=== PATIENT | female | born 1975 | race Caucasian/White ===

== ENCOUNTER 2017-08-22 19:57 | Emergency (ER) | payer BC ==
[2017-08-22 20:58] LABS: ABS Basophils 0.1 10^3/ul (0-0.2); ABS Eosinophils 0.2 10^3/ul (0-0.6); ABS Lymphocytes 2.7 10^3/ul (1.0-4.8); ABS Monocytes 0.9 10^3/ul (0-0.8); ABS Neutrophils 10.8 10^3/ul (1.5-7.7); ABS Nucleated RBC 0 10^3/ul; Eosinophil % 1.3 % (0-6); Hematocrit 41 % (35-47); Lymphocyte % 18.2 % (25-47); Mean Corpuscular HGB Conc 34 g/dl (31-36); Mean Corpuscular Hemoglobin 28 pg (27-31); Mean Corpuscular Volume 81 fL (80-97); Mean Platelet Volume 8.7 um3 (7.4-10.4); Nucleated Red Blood Cells % 0; Platelet Count 319 10^3/ul (150-450); Red Blood Count 5.07 10^6/ul (4.00-5.40); Red Cell Distribution Width 14 % (10.5-15); White Blood Count 14.6 10^3/ul (3.5-10.8)
[2017-08-22 23:30] LABS: Urine Appearance Clear; Urine Blood Negative (Negative); Urine Color Yellow; Urine Ketones Negative (Negative); Urine Protein Negative (Negative); Urine Specific Gravity 1.005 (1.010-1.030); Urine Urobilinogen Negative (Negative)
--- NOTE | 2017-08-23 00:08 | ED ---
Abdominal Pain/Female - HPI Summary HPI Summary: This is lillian Vincentin documenting for attending Dr. Rose Ly MD. A 41 y/o female presents to ED c/o LUQ abdominal pain. As per triage, "Patient reporting increased left-sided abdominal pain that ""shoots around my back""". Currently, the patient has no nausea or vomit ("waves of nausea"), but the abdominal pain is present. According to the patient, she has been having abdominal pain for the past two days (since 08/21/2017) with it reaching 8/10 in severity. She stated that she vomited a couple times over the last couple days. The vomit was not dark or bloody, however there was bile and undigested food. Other than the abdominal pain she comes in to the ED today with, she is otherwise healthy. Pt denies any fever (that she knows of). The patient noted that yesterday her stool has been solid, but there was also diarrhea with no blood. Additionally, it was noted that she has had no appetite lately. To alleviate symptoms, pt took 800 mg of Ibuprofen around 1730, however it did no good. PMHx of cholecystectomy and hernia surgery where lots of scar tissue were removed from gallbladder (pt has scars on abdomen). Additional PMHx of tubal ligation and Endoscopy. Her endoscopy was before her cholecystectomy done at [facility]. The upper and lower scoped endoscopy revealed that there was nothing to be concerned of as there was no abnormalities, however, she noted that there was acid reflux wearing but it will heal over time. Furthermore, she just had her menstrual period that started over a week ago which ended approximately on Sunday (08/19/2017), however she stated that previous to that she never had one. Her doctor stated it is signs of early menopause. No known allergies. Current medications are Zyrtec (allergies), Flonase Nasal [place] and Omeprazole. She took Omeprazole this morning. PCP is Dr. Salty Barksdale. Her who has atrial flutter hiatal hernia will be her ride home and he is on his way home to drop of children. - History of Current Complaint Chief Complaint: EDAbdPain Stated Complaint: ABD PAIN Time Seen by Provider: 08/22/17 23:46 Hx Obtained From: Patient Hx Last Menstrual Period: 1 MONTH AGO Onset/Duration: Sudden Onset Timing: Constant Severity Initially: Severe Severity Currently: Severe Pain Intensity: 8 Pain Scale Used: 0-10 Numeric Location: Discrete At: LUQ Radiates: Yes Radiates to: Back Aggravating Factor(s): Nothing Alleviating Factor(s): Nothing Associated Signs and Symptoms: Positive: Decreased Appetite, Nausea, Vomiting, Diarrhea. Negative: Fever Allergies/Adverse Reactions: Allergies Allergy/AdvReac Type Severity Reaction Status Date / Time No Known Allergies Allergy Verified 02/08/15 15:54 PMH/Surg Hx/FS Hx/Imm Hx Endocrine/Hematology History: Denies: Hx Diabetes - a Cardiovascular History: Denies: Hx Hypertension - Surgical History Surgery Procedure, Year, and Place: TUBAL LIGATION,. CHOLECYSTECTOMY, HERNIA REPAIR 11/2014 Infectious Disease History: No Infectious Disease History: Denies: Traveled Outside the in Last 30 Days - Family History Known Family History: Negative: Hypertension - Social History Alcohol Use: Occasionally Substance Use Type: Reports: None Smoking Status (MU): Never Smoked Tobacco Review of Systems Negative: Fever Positive: Abdominal Pain, Vomiting, Diarrhea, Nausea, Other - POSITIVE: Appetite changes All Other Systems Reviewed And Are Negative: Yes Physical Exam - Summary Physical Exam Summary: Appearance: Well-appearing, moderate pain distress, well-nourished Skin:Warm, color reflects adequate perfusion, dry Head:Normal Head/Face inspection, atraumatic Eyes: Conjunctiva clear ENT:Normal inspection Neck:Supple, no nodes, no JVD Respiratory: Lungs clear, normal breath sounds, no respiratory distress Cardio: RRR, No murmur, pulses normal, brisk capillary refill Abdomen: Soft, tender in the LUQ Bowel sounds: Present Musculoskeletal: Strength Intact/ROM intact, no calf tenderness, no edema. Psychological: Normal Neuro: Alert, muscle tone normal, no focal deficit Triage Information Reviewed: Yes Vital Signs On Initial Exam: Initial Vitals Temp Pulse Resp BP Pulse Ox 99.2 F 129 20 161/99 98 08/22/17 20:08 08/22/17 20:08 08/22/17 20:08 08/22/17 20:08 08/22/17 20:08 Vital Signs Reviewed: Yes Diagnostics - Vital Signs Vital Signs Temp Pulse Resp BP Pulse Ox 08/22/17 23:36 95 155/76 96 08/22/17 22:11 98.2 F 87 18 111/67 08/22/17 20:08 99.2 F 129 20 161/99 98 - Laboratory Lab Results: Lab Results 08/22/17 08/22/17 08/22/17 Range/Units 20:43 20:43 22:56 WBC 14.6 H (3.5-10.8) 10^3/ul RBC 5.07 (4.00-5.40) 10^6/ul Hgb 14.0 (12.0-16.0) g/dl Hct 41 (35-47) % MCV 81 (80-97) fL MCH 28 (27-31) pg MCHC 34 (31-36) g/dl RDW 14 (10.5-15) % Plt Count 319 (150-450) 10^3/ul MPV 8.7 (7.4-10.4) um3 Neut % (Auto) 73.9 (38-83) % Lymph % (Auto) 18.2 L (25-47) % Hardy % (Auto) 5.9 (0-7) % Eos % (Auto) 1.3 (0-6) % Baso % (Auto) 0.7 (0-2) % Absolute Neuts (auto) 10.8 H (1.5-7.7) 10^3/ul Absolute Lymphs (auto) 2.7 (1.0-4.8) 10^3/ul Absolute Monos (auto) 0.9 H (0-0.8) 10^3/ul Absolute Eos (auto) 0.2 (0-0.6) 10^3/ul Absolute Basos (auto) 0.1 (0-0.2) 10^3/ul Absolute Nucleated RBC 0 10^3/ul Nucleated RBC % 0 Sodium 137 (135-145) mmol/L Potassium 3.9 (3.5-5.0) mmol/L Chloride 101 (101-111) mmol/L Carbon Dioxide 23 (22-32) mmol/L Anion Gap 13 H (2-11) mmol/L BUN 7 (6-24) mg/dL Creatinine 0.83 (0.51-0.95) mg/dL Est GFR ( Amer) 90.8 (>60) Est GFR (Non-Af Amer) 75.0 (>60) BUN/Creatinine Ratio 8.4 (8-20) Glucose 83 (70-100) mg/dL Calcium 9.6 (8.6-10.3) mg/dL Total Bilirubin 0.50 (0.2-1.0) mg/dL AST 17 (13-39) U/L ALT 20 (7-52) U/L Alkaline Phosphatase 121 H (34-104) U/L C-Reactive Protein 11.06 H (<8.01) mg/L Total Protein 8.1 (6.4-8.9) g/dL Albumin 4.4 (3.2-5.2) g/dL Globulin 3.7 (2-4) g/dL Albumin/Globulin Ratio 1.2 (1-3) Lipase 18 (11.0-82.0) U/L Urine Color Yellow Urine Appearance Clear Urine pH 6.0 (5-9) Ur Specific [place] 1.005 L (1.010-1.030) Urine Protein Negative (Negative) Urine Ketones Negative (Negative) Urine Blood Negative (Negative) Urine Nitrate Negative (Negative) Urine Bilirubin Negative (Negative) Urine Urobilinogen Negative (Negative) Ur Leukocyte Esterase Negative (Negative) Urine Glucose Negative (Negative) Result Diagrams: 08/22/17 20:43 08/22/17 20:43 Lab Statement: Any lab studies that have been ordered have been reviewed, and results considered in the medical decision making process. Re-Evaluation - Re-Evaluation First Eval Re-Evaluation Time: 04:35 Comment: Pt c/o level 7 RLQ pain. Second Eval Re-Evaluation Time: 05:37 Comment: Patient is still in pain, but would like to go home. Abdominal Pain Fem Course/Dx - Course Course Of Treatment: A 41 y/o female presents to ED c/o LUQ abdominal pain. No laboratory scans were done. In the ED course, the patient recieved Maalox, Xylocaine, Morphine, Protonix and IV fluids. During reevaluation, the patient was still in pain, but would still like to go home. Patient will be discharged with a diagnosis of LUQ abdominal pain. Pt is to follow up with PCP in 2-3 days. Pt is agreeable with this plan. - Diagnoses Provider Diagnoses: LUQ abdominal pain Discharge - Sign-Out/Discharge Documenting (check all that apply): Patient Departure - DISCHARGE - Discharge Plan Condition: Stable Disposition: HOME Patient Education Materials: Acute Abdominal Pain (ED) Referrals: Salty Barksdale MD [Primary Care Provider] - 2 Days (FOLLOW UP WITH PCP IN 2-3 DAYS.) Additional Instructions: Call your GI doctor from [place] today. We gave you a copy of your labs from the ER today. You were given Morphine 6mg IV, pantoprazole 80mg IV, and a "GI cocktail" with some relife. Return to the ER if any new or worsening symptoms.
[2017-08-23] MEDS ORDERED: NS 0.9% 1000 ML* 2,000 ML IV SCH (01:30)
[2017-08-23] MEDS ORDERED: Morphine VIAL* 4 MG/ML VIAL (1 ml vial) IV ONE ×2 (01:31→01:34)
[2017-08-23] MEDS ORDERED: Pantoprazole IV* 40 MG IV ONE (01:31)
[2017-08-23] MEDS ORDERED: Lidocaine 2% VISCOUS* 15 ML UDC PO ONE (04:36)
[2017-08-23] MEDS ORDERED: Lidocaine 2% VISCOUS* 15 ML UDC ONE (04:37)
[2017-08-23] MEDS ORDERED: Al Hydrox/Mg Hydrox/Simet LIQ* 30 ML UDC PO ONE (04:37)
[2017-08-23] MEDS ORDERED: Al Hydrox/Mg Hydrox/Simet LIQ* 30 ML UDC ONE (04:37)
[2017-08-23 06:00] VITALS: BP 103/70
== END 2017-08-23 06:02 | disposition home or self-care (01) ==
LOC: ED 19:57
DX: R10.12 Left upper quadrant pain (principal); R10.31 Right lower quadrant pain; R11.2 Nausea with vomiting, unspecified; R19.7 Diarrhea, unspecified; Z90.49 Acquired absence of other specified parts of digestive tract
CPT/HCPCS: 36415; 80053; 81003; 82272; 83690; 85025; 86140; 96374; 96375; 99284; A9270-GY; J2270

== ENCOUNTER 2018-02-25 11:29 | Emergency (ER) | payer BC ==
[2018-02-25 11:37] VITALS: BP 140/82
--- NOTE | 2018-02-25 11:55 | UC ---
Abdominal Pain Female HPI - HPI Summary HPI Summary: This patient is a 42-year-old female who presents to the urgent care with a chief complaint of lower abdominal pain. She reports that the pain started on Sunday for which she has been taking dicyclomine since the patient has past medical history of irritable bowel syndrome. Initially the patient had constipation but now the patient is having diarrhea. She reports that is watery diarrhea. Denies any blood or mucus. She reports that the pain is 10 out of 10. Positive nausea vomiting and unable to keep anything by mouth. - History of Current Complaint Chief Complaint: UCAbdominalPain Stated Complaint: ABDOMINAL PAIN Time Seen by Provider: 02/25/18 11:42 Hx Last Menstrual Period: unknown Pain Intensity: 8 Allergies/Adverse Reactions: Allergies Allergy/AdvReac Type Severity Reaction Status Date / Time No Known Allergies Allergy Verified 02/25/18 11:30 PMH/Surg Hx/FS Hx/Imm Hx Previously Healthy: Yes GI/ History: Other - Irritable bowel syndrome - Surgical History Surgical History: Yes Surgery Procedure, Year, and Place: TUBAL LIGATION,. CHOLECYSTECTOMY, HERNIA REPAIR 11/2014 - Family History Known Family History: Negative: Hypertension - Social History Alcohol Use: Occasionally Substance Use Type: None Smoking Status (MU): Former Smoker Review of Systems All Other Systems Reviewed And Are Negative: Yes Constitutional: Positive: Negative Skin: Positive: Negative Eyes: Positive: Negative ENT: Positive: Negative Respiratory: Positive: Negative Cardiovascular: Positive: Negative Gastrointestinal: Positive: Abdominal Pain, Nausea Genitourinary: Positive: Negative Motor: Positive: Negative Neurovascular: Positive: Negative Musculoskeletal: Positive: Negative Neurological: Positive: Negative Psychological: Positive: Negative Is Patient Immunocompromised?: No Physical Exam - Summary Physical Exam Summary: VITAL SIGNS: Reviewed. GENERAL: Patient is an obese female who is lying comfortable in the stretcher. Patient is not in any acute respiratory distress. HEAD AND FACE: Normocephalic and atraumatic. EYES: PERRLA, EOMI x 2, No injected conjunctiva. EARS: Hearing grossly intact. Ear canals and tympanic membranes are WNL. MOUTH: Oropharynx within normal limits. NECK: Supple, trachea is midline, no adenopathy, no JVD. CHEST: Symmetric, no tenderness at palpation LUNGS: Clear to auscultation bilaterally. No wheezing or crackles. CVS: RRR, S1 and S2 present, no murmurs or gallops appreciated. ABDOMEN: Soft, obese, diffuse tenderness however increases and tenderness in the left lower quadrant. EXTREMITIES: FROM in all major joints, no edema, no cyanosis or clubbing. NEURO: Alert and oriented x 3. No acute neurological deficits. Speech is normal. SKIN: Dry and warm Vital Signs: Initial Vital Signs Temp 100.0 F 02/25/18 11:32 Pulse 111 02/25/18 11:32 Resp 20 02/25/18 11:32 BP 140/82 02/25/18 11:32 Pulse Ox 100 02/25/18 11:32 Abd Pain Female Course/Dx - Course Course Of Treatment: I believe that the patient would benefit of blood work, IV medications for pain, nausea vomiting, possibly an abdominopelvic CT a discussion with the ED attending therefore the patient was recommended to go to the emergency department for further workup and management. The patient agrees and understands. The patient declined ambulance transfer. She reports that her will take the patient to the emergency department. - Differential Dx/Diagnosis Differential Diagnosis: Constipation, Diverticulitis, Irritable Bowel Syndrome, Ovarian Cyst, Urinary Tract Infection Provider Diagnosis: Abdominal pain Discharge - Sign-Out/Discharge Documenting (check all that apply): Patient Departure All imaging exams completed and their final reports reviewed: No - Discharge Plan Condition: Good Disposition: HOME-RECOMMEND TO ED Patient Education Materials: Acute Abdominal Pain (ED) Referrals: Salty Barksdale MD [Primary Care Provider] - Additional Instructions: Patient will be discharged to the emergency room for further workup and management. Patient declined ambulance transfer. - Billing Disposition and Condition Condition: GOOD Disposition: Home-Recommend to ED
--- NOTE | 2018-02-25 16:40 | UC ---
Course/Dx - Diagnoses Provider Diagnoses: Abdominal pain Discharge - Sign-Out/Discharge Documenting (check all that apply): Post-Discharge Follow Up All imaging exams completed and their final reports reviewed: No Studies - Discharge Plan Condition: Good Disposition: HOME-RECOMMEND TO ED Patient Education Materials: Acute Abdominal Pain (ED) Referrals: Salty Barksdale MD [Primary Care Provider] - Additional Instructions: Patient will be discharged to the emergency room for further workup and management. Patient declined ambulance transfer. - Billing Disposition and Condition Condition: GOOD Disposition: Home-Recommend to ED
== END 2018-02-25 12:03 | disposition home health service (06) ==
LOC: UCEAST 11:29
DX: R10.30 Lower abdominal pain, unspecified (principal); R19.7 Diarrhea, unspecified; R11.2 Nausea with vomiting, unspecified; Z90.49 Acquired absence of other specified parts of digestive tract; Z87.891 Personal history of nicotine dependence
CPT/HCPCS: 99212; G0463

== ENCOUNTER 2018-02-25 12:18 | Inpatient (IN) | payer BC ==
[2018-02-25] MEDS ORDERED: NS 0.9% 1000 ML* 1,000 ML IV ONE (12:51)
[2018-02-25] MEDS ORDERED: Ondansetron INJ* 2 MG/ML VIAL IV ONE (12:51)
--- NOTE | 2018-02-25 12:52 | ED ---
Abdominal Pain/Female - HPI Summary HPI Summary: Patient is a patient is a 42-year-old female who presents emergency department for abdominal pain times roughly 5 days. Patient describes pain as sharp and burning. She notes history of IBS and initially thought pain with secondary to IBS. She states she took her rx IBS medication which did not help. Associated sx of diarrhea and nausea. She also notes fever and chills. She denies cough, CP , SOB, blood in stools, urinary symptoms. Sx are moderate in severity. No current modifying factors. Pt. seen at prior to arrival. - History of Current Complaint Chief Complaint: EDAbdPain Stated Complaint: ABD PAIN Time Seen by Provider: 02/25/18 12:32 Hx Obtained From: Patient Hx Last Menstrual Period: unknown Pain Intensity: 8 Allergies/Adverse Reactions: Allergies Allergy/AdvReac Type Severity Reaction Status Date / Time No Known Allergies Allergy Verified 02/25/18 12:24 Home Medications: Home Medications Dicyclomine CAP* [Bentyl CAP*] 10 mg PO TID PRN 02/25/18 [History Confirmed ] Fluticasone NASAL SPRAY 50MCG* [Flonase NASAL SPRAY 50MCG*] 2 spray BOTH NARES DAILY 02/25/18 [History Confirmed 02/25/18] buPROPion SR TAB* [Wellbutrin SR TAB*] 150 mg PO DAILY 02/25/18 [History Confirmed 02/25/18] PMH/Surg Hx/FS Hx/Imm Hx Previously Healthy: Yes Endocrine/Hematology History: Denies: Hx Diabetes, Hx Thyroid Disease Cardiovascular History: Denies: Hx Hypertension Respiratory History: Denies: Hx Asthma, Hx Chronic Obstructive Pulmonary Disease (COPD) GI History: Reports: Hx Gastroesophageal Reflux Disease Denies: Hx Ulcer - Surgical History Surgery Procedure, Year, and Place: TUBAL LIGATION,. CHOLECYSTECTOMY, HERNIA REPAIR 11/2014 Infectious Disease History: No Infectious Disease History: Denies: Hx Hepatitis, Hx Human Immunodeficiency Virus (HIV), Traveled Outside the [place] in Last 30 Days - Family History Known Family History: Positive: Non-Contributory Negative: Hypertension - Social History Occupation: Employed Full-time Lives: With Family Alcohol Use: Occasionally Substance Use Type: Reports: None Smoking Status (MU): Former Smoker Review of Systems Positive: Fever, Chills Eyes: Negative ENT: Negative Cardiovascular: Negative Respiratory: Negative Positive: Abdominal Pain, Diarrhea, Nausea Genitourinary: Negative Neurological: Negative All Other Systems Reviewed And Are Negative: Yes Physical Exam Triage Information Reviewed: Yes Vital Signs On Initial Exam: Initial Vitals Temp Pulse Resp BP Pulse Ox 97.3 F 121 16 130/81 100 02/25/18 12:19 02/25/18 12:19 02/25/18 12:19 02/25/18 12:19 02/25/18 12:19 Vital Signs Reviewed: Yes Appearance: Positive: Pain Distress - Pt. lying on her left side in tears. Appears in pain but nontoxic. Skin: Positive: Warm, Dry Head/Face: Positive: Normal Head/Face Inspection Eyes: Positive: Normal, EOMI Neck: Positive: Supple Respiratory/Lung Sounds: Positive: Clear to Auscultation, Breath Sounds Present Cardiovascular: Positive: Tachycardia Abdomen Description: Positive: Other: - Obese. Abd. is soft with diffuse tenderness and extreme pain with guarding to LLQ. Mild CVA tenderness on left. Musculoskeletal: Positive: Normal, Strength/ROM Intact Neurological: Positive: Normal, CN Intact II-III Psychiatric: Positive: Affect/Mood Appropriate Diagnostics - Vital Signs Vital Signs Temp Pulse Resp BP Pulse Ox 02/25/18 12:19 97.3 F 121 16 130/81 100 - Laboratory Result Diagrams: 02/25/18 12:45 02/25/18 12:45 Lab Statement: Any lab studies that have been ordered have been reviewed, and results considered in the medical decision making process. Abdominal Pain Fem Course/Dx - Course Course Of Treatment: Pt. presenting for severe lower abd. tenderness. Prior to arrival at , her temp was 100F. She is tachycardic in ED. Labs drawn. CT ordered for further evaluation. Pt. given IV morphine and zofran. CBC shows a leukocytosis of 19k. Given fever, tachycaria, and WBC pt. meets sepsis criteria and zosyn odered. CRP markedly elevated 253. CT abd./pelvis scan per radiology : IMPRESSION: 1. CT findings are most consistent with proximal sigmoid diverticulitis. There is. potentially a small amount of extracolonic gas but currently no drainable fluid. collection. 2. Along the anterolateral margin of the right middle lobe there is a partially visualized. 5 mm groundglass nodule that was not seen on prior CT examinations. Furthermore there is. faint patchy infiltrate in the lateral aspect of the dependent portion of the right middle. lobe. Differential diagnosis includes infectious or inflammatory etiologies with neoplasm. considered less likely but not entirely excluded by imaging alone. On a nonemergent basis. CT of the chest is advised for complete characterization. 3. Likely hepatic steatosis or other chronic infiltrative disease of the liver. 4. Stable mild splenomegaly. Results discussed with pt. Her pain has improved but she is still fairly uncomfortable. Given sepsis criteria with source hospitalist was consulted for admission. I spoke hospitalist, Dr. Raza, and she has accepted pt. to her service. - Diagnoses Differential Diagnosis: Positive: Appendicitis, Bowel Obstruction, Constipation , Diverticulitis, Pancreatitis, Urinary Tract Infection Provider Diagnoses: Diverticulitis, Sepsis Discharge - Sign-Out/Discharge Documenting (check all that apply): Patient Departure - Discharge Plan Condition: Stable Disposition: [facility]ITTED [facility] Referrals: Salty Barksdale MD [Primary Care Provider] - - Billing Disposition and Condition Condition: STABLE Disposition: Admitted to [facility]
[2018-02-25 13:00] LABS: ABS Basophils 0.1 10^3/ul (0-0.2); ABS Eosinophils 0.1 10^3/ul (0-0.6); ABS Neutrophils 15.9 10^3/ul (1.5-7.7); ABS Nucleated RBC 0 10^3/ul; Eosinophil % 0.5 %; Hematocrit 39 % (35-47); Lymphocyte % 10.7 %; Mean Corpuscular HGB Conc 34 g/dl (31-36); Mean Corpuscular Hemoglobin 27 pg (27-31); Mean Corpuscular Volume 81 fL (80-97); Mean Platelet Volume 8.6 fL (7.4-10.4); Nucleated Red Blood Cells % 0; Platelet Count 301 10^3/ul (150-450); Red Blood Count 4.79 10^6/ul (4.00-5.40); Red Cell Distribution Width 14 % (10.5-15); White Blood Count 19.1 10^3/ul (3.5-10.8)
[2018-02-25] MEDS: Morphine VIAL* 4 MG/ML VIAL (1 ml vial) IV ONE ×2 (13:02→15:42)
[2018-02-25] MEDS: NS 0.9% 1000 ML* 1,000 ML IV ONE ×2 (13:02→13:41)
[2018-02-25] MEDS ORDERED: Piperacillin/Tazobac ADVAN(*) 3.375 GM in NS 0.9% 100 ML* 100 ML IVPB ONE (13:04)
[2018-02-25 13:20] LABS: Albumin 4.1 g/dL (3.2-5.2); Albumin/Globulin Ratio 1.2 (1-3); BUN/Creatinine Ratio 7.9 (8-20); C Reactive Protein 253.18 mg/L (<8.01); Calcium 9.2 mg/dL (8.6-10.3); EGFR Non-African American 82.7 (>60); Globulin 3.5 g/dL (2-4); Potassium 3.7 mmol/L (3.5-5.0); Total Bilirubin 0.9 mg/dL (0.2-1.0); Total Protein 7.6 g/dL (6.4-8.9)
[2018-02-25 13:24] LABS: HCG Pregnancy 0.99 mIU/mL
[2018-02-25] MEDS ORDERED: Iohexol 300* (CONTRAST) 10 ML SDV IV ONE (13:38)
[2018-02-25] MEDS ORDERED: Morphine VIAL* 4 MG/ML VIAL (1 ml vial) IV ONE (14:03)
[2018-02-25] MEDS ORDERED: Ondansetron INJ* 2 MG/ML VIAL IV PRN (15:25)
[2018-02-25 15:27] LABS: Urine Appearance Clear; Urine Bilirubin Negative (Negative); Urine Blood Negative (Negative); Urine Color Yellow; Urine Glucose Negative (Negative); Urine Ketones Trace (Negative); Urine Nitrite Negative (Negative); Urine Protein Negative (Negative); Urine Urobilinogen Negative (Negative)
[2018-02-25] MEDS ORDERED: Dicyclomine CAP* 10 MG PO PRN (15:31)
[2018-02-25] MEDS ORDERED: METRONIDAZOLE IVPB ONE (15:32)
[2018-02-25] MEDS ORDERED: Morphine VIAL* 4 MG/ML VIAL (1 ml vial) ONE (15:38)
[2018-02-25] MEDS: NS 0.9% 1000 ML* 1,000 ML IV SCH ×2 (15:43→18:22)
[2018-02-25] MEDS ORDERED: metroNIDAZOLE IV 500 MG/100ML* 500 MG/100 ML BAG IVPB SCH (16:00)
[2018-02-25 16:30] LABS: Activated Partial Thrombo Time 31.1 seconds (26.0-36.3); INR 1.28 (0.77-1.02)
[2018-02-25] MEDS ORDERED: Pantoprazole TAB * 40 MG TAB PO ONE (17:22)
[2018-02-25] MEDS: Morphine VIAL* 4 MG/ML VIAL (1 ml vial) IV PRN (20:26)
--- NOTE | 2018-02-25 20:26 | HP ---
CC: Dr. Salty Barksdale * HISTORY AND PHYSICAL: DATE OF ADMISSION: 02/25/18 PRIMARY CARE PROVIDER: Dr. Salty Barksdale. ATTENDING PHYSICIAN WHILE IN THE HOSPITAL: Dr. Cassandra Raza * (report dictated by Marco Antonio Omalley NP) CHIEF COMPLAINT: Abdominal pain. HISTORY OF PRESENT ILLNESS: Ms. Villanueva is a 42-year-old female patient who carries a history of IBS, seasonal allergies, and the history of diverticulitis in the past. She comes in to our ER today stating that she had had since Sunday intermittent abdominal discomfort that has been progressively getting worse in nature. She says it has been mostly she thought that she was having a flare-up of her IBS. She had ran out of the Bentyl. She called her primary. She got that reordered for her. On , she started taking it, but then she noticed that throughout the weekended, it just was not helping her, did not help her initially either. She was concerned because the frequency and duration of the pain and intensity was getting worse and worse, particularly in the left lower quadrant. She was having associated nausea with dry heave. She says her appetite had been decreasing and she noticed yesterday that she started having low-grade temperatures and she could not get worm and at times she says will feel like she was burning up. She was concerned because the symptoms were not getting any better. She felt a little better this morning, but when she got up to try go about her daily activities throughout the day, she noticed that she was having worsening pain, so went to urgent care who transferred her here to the hospital. She did admit having liquidy diarrhea today. No recent antibiotics and she denied having any tarry stools or any blood in the stool. She says the pain just was not getting any better. She came in, evaluated in the ED, was found to have diverticulitis, early signs of sepsis and because of this, we are asked to evaluate for admission. PAST MEDICAL HISTORY: Significant for: 1. IBS. 2. Diverticulitis. This is she thinks her third or fourth episodes. Her last episodes of diverticulitis was about 3 years ago. 3. Seasonal allergies. PAST SURGICAL HISTORY: 1. She has had tubal ligation. 2. Laparoscopic cholecystectomy. 3. Hernia repair. HOME MEDICATIONS: Her home meds according to the patient include: 1. Wellbutrin 150 mg p.o. daily. 2. Prilosec 21 mg daily. 3. Flonase 2 sprays both nares daily. 4. Bentyl 10 mg p.o. t.i.d. as needed. 5. Zyrtec 10 mg p.o. daily. ALLERGIES: Her allergies to medication include no known drug allergies. FAMILY HISTORY: Her mother and father, both diabetics. Her mother has COPD. Father had a history of heart disease, he was . SOCIAL HISTORY: She is a former smoker. She quit over 10 years ago. Rarely drinks alcohol. Surrogate decision maker is her . REVIEW OF SYSTEMS: There is a documented fever at home. She says she had a fever of over 100. She denied having any significant weight change. She denies having any double vision. She denied having any ear discharge. There was no rhinorrhea, no sore throat. No thyroid enlargement. She denies having any chest pain. There is abdominal pain in the lower quadrant, which was described as again sharp, stabbing, burning, pressure pain, intermittent in nature that has been getting gradually worse with no alleviating factors. She had also associated nausea with dry heaves, but no vomiting no dysuria, no frequency, no seizure, no loss of consciousness, no skin ulcerations, no pruritus. Review of 14 systems completed, all others negative. PHYSICAL EXAMINATION GENERAL: At this time, Ms. Villanueva is a 42-year-old female patient. She is morbidly obese. She is sitting on ED stretcher. She does not appear to be in any acute distress. VITAL SIGNS: Blood pressure 103/84, pulse 100, respirations 20, O2 sat 98%, and temperature was 97. HEENT: Head is atraumatic and normocephalic. Eyes: EOMs are intact. Sclerae anicteric and not pale. Throat: Oral mucosa appears to be dry. No oropharyngeal erythema. NECK: Supple. LUNGS: Clear to auscultation. No wheezes, rales, or rhonchi. HEART: Sounds S1, S2. She had a regular rate and rhythm. No murmurs, rubs, or gallops. ABDOMEN: Soft, it was flat. Bowel sounds were present. She does have tenderness in the left lower quadrant, but she does not distended. EXTREMITIES: Pulses were 2 throughout. She is moving all 4 extremities with 5/ 5 strength. NEUROLOGIC: The patient is awake. She is alert. She is oriented x3. Her is tongue midline. Sewing Demonstrator are equal. She had no gross focal deficits. SKIN: Her skin was grossly intact. DIAGNOSTIC STUDIES/LAB DATA: The labs today revealed WBC of 19.1, RBC of 4.79 , hemoglobin of 13.0, hematocrit of 39, platelet count of 301. Sodium was 136, potassium was 3.7, chloride of 102, bicarb 22, BUN 6, creatinine 0.76, glucose 86, lactate 1.1, calcium 9.2, total bili is 0.9, AST 13, ALT 17, alk phos 100. CRP was 253. Albumin 4.1. Lipase normal. Beta-hCG was 0.99. Urine is pending. She did have a chest x-ray obtained today, which showed no active cardiopulmonary disease. She did have abdomen and pelvis CT obtained today, which showed impression, CT findings are consistent with proximal sigmoid diverticulitis. There is a potentially a small amount of extracolonic gas, but certainly no drainable fluid collection. Along the anterolateral margin of the right middle lobe, there is a partially visualized 5 mm ground glass nodule that was not seen on prior CT. On examination furthermore, there is faint patchy in infiltrate in the lateral aspect of the dependant portion of the right middle lobe. Differential diagnosis includes infectious or inflammatory etiologies with neoplasm considered less likely, but not entirely excluded by imaging alone on a nonemergent basis. CT of the chest is advised for complete characterization, likely hepatic steatosis or other chronic inflammatory disease of the liver, stable mild splenomegaly. Old medical records were reviewed. ASSESSMENT AND PLAN: Ms. Villanueva is a 42-year-old female patient coming into the ED today with complaints of abdominal discomfort, not feeling well. In addition to this, now found to be septic with what appear to be diverticulitis. She will be admitted under inpatient status for: 1. Sepsis secondary to diverticulitis. At this point, blood cultures have been sent. She did receive the 30 cc/kg bolus. Her lactic acid was stable. I will go ahead and place her on Flagyl and Cipro. She received Zosyn in the ED. We will continue to monitor her. I did touch base with a surgeon concrete batcher. At this point, should she deteriorate or have any worsening abdominal symptoms, we will certainly get them involved, but at this point, we will just monitor her , continue with bowel rest, and IV antibiotis, IV fluids, and continue to monitor. 2. Irritable bowel syndrome. Continue her Bentyl. 3. History of seasonal allergies. Continue meds as described. 4. History of depression and anxiety. Continue Wellbutrin. 5. DVT prophylaxis, place her on heparin subcu. 6. Abnormal findings on CT. Lung nodule, possible ground glass opacities. At this point, I did discuss the findings with the patient. She will need to have a followup CT on a nonemergent basis, which could certainly be done in the outpatient setting. 7. Fluids, electrolytes, and nutrition. She will continue on liquid diet. 8. Code status. Full code. TIME SPENT: Time spent on this admission was approximately 60 minutes, greater than half of time was spent [id number] with the patient obtaining my history and physical, the other half time was spent going over the plan of care with the patient and implementing plan of care. I did discuss the plan of care with my attending, Dr. Raza, she is in agreement. MARCO ANTONIO OMALLEY, ERNESTO [id number]/[facility] #: [id number] CAR
[2018-02-25] MEDS: Ciprofloxacin 400MG IVPREMIX(* 400 MG/200 ML BAG IVPB SCH (20:27)
[2018-02-25] MEDS: Cetirizine* 10 MG TAB PO SCH (21:07)
[2018-02-25] MEDS: Fluticasone NASAL SPRAY 50MCG* 16 gm SPRAY BTL BOTH NARES SCH (21:07)
[2018-02-25] MEDS: metroNIDAZOLE IV 500 MG/100ML* 500 MG/100 ML BAG IVPB SCH (21:49)
[2018-02-25] MEDS: Heparin VIAL(*) 5000 UNITS/ML VIAL (FIVE THOUSAND) SUBCUT SCH (21:50)
[2018-02-26] MEDS: Morphine VIAL* 4 MG/ML VIAL (1 ml vial) IV PRN ×2 (05:20→10:39)
[2018-02-26] MEDS: metroNIDAZOLE IV 500 MG/100ML* 500 MG/100 ML BAG IVPB SCH ×3 (05:22→22:27)
[2018-02-26] MEDS: Heparin VIAL(*) 5000 UNITS/ML VIAL (FIVE THOUSAND) SUBCUT SCH ×3 (05:23→22:27)
[2018-02-26 05:35] LABS: ABS Basophils 0 10^3/ul (0-0.2); ABS Eosinophils 0.2 10^3/ul (0-0.6); ABS Lymphocytes 1.4 10^3/ul (1.0-4.8); ABS Monocytes 0.7 10^3/ul (0-0.8); ABS Neutrophils 8.1 10^3/ul (1.5-7.7); ABS Nucleated RBC 0 10^3/ul; Hematocrit 32 % (35-47); Hemoglobin 10.7 g/dl (12.0-16.0); Lymphocyte % 13.5 %; Mean Corpuscular HGB Conc 33 g/dl (31-36); Mean Corpuscular Hemoglobin 27 pg (27-31); Mean Corpuscular Volume 82 fL (80-97); Mean Platelet Volume 8.7 fL (7.4-10.4); Nucleated Red Blood Cells % 0.1; Platelet Count 220 10^3/ul (150-450); Red Blood Count 3.92 10^6/ul (4.00-5.40); Red Cell Distribution Width 14 % (10.5-15); White Blood Count 10.4 10^3/ul (3.5-10.8)
[2018-02-26 05:39] LABS: INR 1.17 (0.77-1.02)
[2018-02-26 05:50] LABS: BUN/Creatinine Ratio 8.1 (8-20); Calcium 8.1 mg/dL (8.6-10.3); EGFR African American 103.2 (>60); EGFR Non-African American 85.3 (>60); Potassium 3.7 mmol/L (3.5-5.0)
[2018-02-26] MEDS: Ciprofloxacin 400MG IVPREMIX(* 400 MG/200 ML BAG IVPB SCH ×2 (08:31→21:00)
[2018-02-26] MEDS: Pantoprazole TAB * 40 MG TAB PO SCH (08:31)
[2018-02-26] MEDS: Fluticasone NASAL SPRAY 50MCG* 16 gm SPRAY BTL BOTH NARES SCH (08:32)
[2018-02-26] MEDS: Cetirizine* 10 MG TAB PO SCH (08:32)
[2018-02-26] MEDS: buPROPion SR TAB.SR* 150 MG PO SCH (08:32)
[2018-02-26] MEDS: D5W 1/2 NS KCl 20 Meq 1000 ML* 1,000 ML IV SCH ×2 (09:10→20:59)
--- NOTE | 2018-02-26 10:23 | PN ---
Subjective Date of Service: 02/26/18 Interval History: Patient admitted last night for diverticulitis. Still has ongoing LLQ pain - feels like morphine is wearing off and pain returning. Improved since she was admitted. Drinking a lot of water and clears. No N/V. No CP or SOB. States had 3 bouts of diverticulitis as outpatient requiring oral antibiotics, never this severe. Pain has been in different areas each time. Had a colonoscopy a few years ago with Dr. Copeland that was unremarkable. at the bedside. Objective Active Medications: Bupropion HCl (Wellbutrin Sr Tab*) 150 mg PO DAILY PENDING SALE TO [facility] Last Admin: 02/26/18 08:32 Dose: 150 mg Cetirizine HCl (Zyrtec*) 10 mg PO DAILY PENDING SALE TO [facility]; Protocol Last Admin: 02/26/18 08:32 Dose: 10 mg Dicyclomine HCl (Bentyl Cap*) 10 mg PO TID PRN PRN Reason: PAIN - ABDOMINAL Fluticasone Propionate (Flonase Nasal [place] 50mcg*) 2 spray BOTH NARES DAILY PENDING SALE TO [facility] Last Admin: 02/26/18 08:32 Dose: 2 spray Heparin Sodium (Porcine) (Heparin Vial(*)) 5,000 units SUBCUT Q8HR PENDING SALE TO [facility] Last Admin: 02/26/18 05:23 Dose: 5,000 units Ciprofloxacin/Dextrose (Cipro 400 Mg Ivpremix(*)) 400 mg in 200 mls @ 200 mls/ hr IVPB Q12H PENDING SALE TO [facility] Last Admin: 02/26/18 08:31 Dose: 200 mls/hr Sodium Chloride (Ns 0.9% 1000 Ml*) 1,000 mls @ 125 mls/hr IV PER RATE PENDING SALE TO [facility] Stop: 02/26/18 23:29 Last Admin: 02/25/18 18:22 Dose: 125 mls/hr Metronidazole/Sodium Chloride (Flagyl 500 Mg Ivpb*) 500 mg in 100 mls @ 100 mls /hr IVPB Q8H PENDING SALE TO [facility] Last Admin: 02/26/18 05:22 Dose: 100 mls/hr Potassium Chloride/Dextrose (D5w 1/2 Ns Kcl 20 Meq 1000 Ml*) 1,000 mls @ 100 mls/hr IV PER RATE PENDING SALE TO [facility] Last Admin: 02/26/18 09:10 Dose: 100 mls/hr Morphine Sulfate (Morphine Vial*) 4 mg IV Q4H PRN PRN Reason: PAIN - MILD Last Admin: 02/26/18 05:20 Dose: 4 mg Ondansetron HCl (Zofran Inj*) 4 mg IV Q6H PRN PRN Reason: NAUSEA Last Admin: 02/25/18 20:24 Dose: 4 mg Pantoprazole Sodium (Protonix Tab*) 40 mg PO DAILY TOBY Last Admin: 02/26/18 08:31 Dose: 40 mg Vital Signs - 8 hr 02/26/18 02/26/18 02/26/18 03:07 04:22 05:20 Temperature 98.8 F Pulse Rate 93 Respiratory 17 16 Rate Blood Pressure 93/53 (mmHg) O2 Sat by Pulse 98 98 Oximetry 02/26/18 02/26/18 07:04 07:59 Temperature 98.8 F Pulse Rate 82 Respiratory 16 16 Rate Blood Pressure 94/46 (mmHg) O2 Sat by Pulse 99 Oximetry Oxygen Devices in Use Now: None Eyes: PERRLA Ears/Nose/Mouth/Throat: Mucous Membranes Moist Neck: Trachea Midline Respiratory: Symmetrical Chest Expansion and Respiratory Effort, Clear to Auscultation Cardiovascular: NL Sounds; No Murmurs; No JVD, RRR Abdominal: - - hypoactive bowel sounds, obese, soft, ND, pain in LLQ, no rebound or gaurding Extremities: No Edema Neurological: Alert and Oriented x 3, NL Muscle Strength and Tone Result Diagrams: 02/26/18 05:17 02/26/18 05:17 Assess/Plan/Problems-Billing Assessment: This is a 42 yr old with PMhx of diverticulitis who presents with LLQ pain found to have diverticulitis - Patient Problems (1) Diverticulitis Current Visit: Yes Status: Acute Code(s): K57.92 - DVTRCLI OF INTEST, PART UNSP, W/O PERF OR ABSCESS W/O BLEED SNOMED Code(s): 894172933 Comment: A. [address]th [address] scan - sigmoid colon with extracolon gas with no fluid collection Pain still persists despite morphine Plan Will change to ice chips only for now Consult surgery to get plugged in with them as this is her 4th episode IVFs and Cipro and Flagyl (2) Anxiety Current Visit: Yes Status: Acute Code(s): F41.9 - ANXIETY DISORDER, UNSPECIFIED SNOMED Code(s): 52579368 Comment: A/P Continue bupropion (3) Irritable bowel syndrome Current Visit: Yes Status: Acute Comment: A/P COntinue bentyl prn (4) GERD (gastroesophageal reflux disease) Current Visit: Yes Status: Acute Code(s): K21.9 - GASTRO-ESOPHAGEAL REFLUX DISEASE WITHOUT ESOPHAGITIS SNOMED Code(s): 574086429 Comment: Continue prilosec (5) Full code status Current Visit: Yes Status: Acute Code(s): Z78.9 - OTHER SPECIFIED HEALTH STATUS SNOMED Code(s): 219328458 (6) DVT prophylaxis Current Visit: Yes Status: Acute Code(s): JDI1191 - SNOMED Code(s): 574023568 Comment: Heparin SQ TID
--- NOTE | 2018-02-26 20:56 | CONS ---
CONSULTATION AND HISTORY AND PHYSICAL: DATE OF CONSULT: 02/26/18 ATTENDING SURGEON: Dr. Kamini Hutchison. SERVICE: General surgery. REASON FOR CONSULT: Left lower quadrant diverticulitis. HISTORY OF PRESENT ILLNESS: Ms. Villanueva is a 42-year-old female with a history of diverticulitis and IBS who presented to the emergency room with ongoing left lower quadrant abdominal pain. The patient states that it began last Sunday. She thought it might have been her IBS; however, it persisted throughout the weekend, so she came to the emergency room yesterday for evaluation. She states that she was having some nausea and dry heaving and her appetite has been decreasing, but she otherwise has been able to tolerate p.o. The patient states that she last had a colonoscopy sometime in her 30s for reflux and she said at that time she had both an upper endoscopy as well as a colonoscopy. She has not had a recent one. She states that she has had a previous episode of diverticulitis. The first one she thinks was approximately 9 years ago. She had a second one after that and her last episode she cannot recall, but she believes it was more than 2 to 3 years ago and she states that she has been able to prevent having diverticulitis by establishing good dietary habits and she also states that she does not have constipation. She has fairly normal bowel movements. Surgery has been consulted to evaluate her diverticulitis as well as to discuss with her surgical options. This evening, she states that her abdominal pain has improved very much. She does not require pain medications since this morning. She has not had any bowel movement since she has been in the hospital; however, she also had not had anything to eat. She states at home, she did have some fevers, but she has not had a fever since she has been in the hospital. PAST MEDICAL HISTORY: 1. IBS. 2. Diverticulitis. 3. Seasonal allergies. PAST SURGICAL HISTORY: 1. Tubal ligation. 2. Laparoscopic cholecystectomy. 3. Hernia repair. MEDICATIONS: 1. Wellbutrin 150 mg p.o. daily. 2. Prilosec 20 mg daily. 3. Flonase. 4. Bentyl. 5. Zyrtec. ALLERGIES: No known drug allergies. FAMILY HISTORY: Her parents are both diabetics. Her mother has COPD and her father has a history of heart disease. SOCIAL HISTORY: She is a former smoker who quit over 10 years ago. She is . REVIEW OF SYSTEMS: Negative, except for as noted in the HPI. PHYSICAL EXAM: VITAL SIGNS: Temperature is 98.4, pulse is 93, respiratory rate 16, O2 sat is 98% O2 on room air, blood pressure is 114/71. GENERAL: An obese female, lying in bed, in no apparent distress. Appears very comfortable. NEUROLOGIC: Alert and oriented x3. HEENT: Normocephalic, atraumatic. CARDIOVASCULAR: Regular rate and rhythm. RESPIRATORY: Clear to auscultation bilaterally. ABDOMEN: Soft, tender in the left lower quadrant, and a morbidly obese abdomen. EXTREMITIES: Warm and well perfused. DIAGNOSTIC STUDIES/LAB DATA: Laboratory values from 02/26/18: White blood cell count is 10.4 from 19.1, hemoglobin is 10.7, hematocrit is 32, platelets 220. Sodium is 138, potassium 3.7, CO2 is 106, BUN is 6, creatinine is 0.74, glucose is 83. Calcium is 8.1. Radiology: Abdominal CT from 02/25/18, please see report for full details. Impression is CT findings are consistent with proximal sigmoid diverticulitis. There is potentially a small amount of extracolonic gas, but currently no drainable collection. Along the anterolateral margin of the right middle lobe is a partially visualized 5 mm ground-glass nodule that was not seen on prior CT examinations. Further, there is a faint patchy infiltrate in the lateral aspect of the dependent portion of the right middle lobe. Differential diagnosis includes infectious or inflammatory etiologies with neoplasm considered less likely, but not entirely excluded by imaging alone. Likely hepatic steatosis and stable mild splenomegaly. ASSESSMENT AND PLAN: Ms. Villanueva is a 42-year-old female with a history of morbid obesity and recurrent episodes of simple diverticulitis. The patient reports in the past with her episodes of diverticulitis, she had never had to be admitted. She only received antibiotics in the emergency room and was sent home. She was admitted for diverticulitis yesterday and today, her pain has now improved and clinically, she appears better and her white count is normalized. She remains afebrile. I have discussed with her potential surgical interventions. I recommended that she may want to consider doing a sigmoid colectomy in the future after discharge. She will require a colonoscopy prior to this. She said today that she does not wish to have surgery at this time and is not considering it as well in the near future. I did discuss with her the potential complications of diverticulitis if it were to occur again, include having free perforation, an abscess, sepsis, possible obstruction, and bleeding. She understands these things. Given that her clinical exam is improved, she can likely have her diet advanced and when clinically appropriate , she should be home on oral antibiotics. She normally sees a physician at [place] and she may want to consider following up with Surgery in [place] or she is welcome to be seen at [facility] Surgery for followup if she wishes to have surgery. I spent approximately 30 minutes in the care and coordination of care for this patient, over half of which was face to face. [id number]/[facility] #: [id number] CAR
[2018-02-27] MEDS ORDERED: Morphine INJ* 2 MG/ML 1 ML SYRINGE (TWO MG - NEW SYRINGE VERSION) IV PRN (06:00)
[2018-02-27] MEDS: Heparin VIAL(*) 5000 UNITS/ML VIAL (FIVE THOUSAND) SUBCUT SCH (06:07)
[2018-02-27 06:08] LABS: Hematocrit 31 % (35-47); Hemoglobin 10.7 g/dl (12.0-16.0); Mean Corpuscular HGB Conc 34 g/dl (31-36); Mean Corpuscular Hemoglobin 28 pg (27-31); Mean Corpuscular Volume 81 fL (80-97); Mean Platelet Volume 8.8 fL (7.4-10.4); Platelet Count 237 10^3/ul (150-450); Red Blood Count 3.84 10^6/ul (4.00-5.40); Red Cell Distribution Width 13 % (10.5-15); White Blood Count 8.3 10^3/ul (3.5-10.8)
[2018-02-27] MEDS: metroNIDAZOLE IV 500 MG/100ML* 500 MG/100 ML BAG IVPB SCH (06:09)
[2018-02-27 06:20] LABS: BUN/Creatinine Ratio 7.9 (8-20); Calcium 8.4 mg/dL (8.6-10.3); EGFR African American 124.2 (>60); EGFR Non-African American 102.7 (>60); Globulin 2.9 g/dL (2-4); Potassium 3.7 mmol/L (3.5-5.0); Total Bilirubin 0.4 mg/dL (0.2-1.0); Total Protein 5.9 g/dL (6.4-8.9)
[2018-02-27] MEDS: Pantoprazole TAB * 40 MG TAB PO SCH (08:53)
[2018-02-27] MEDS: buPROPion SR TAB.SR* 150 MG PO SCH (08:53)
[2018-02-27] MEDS: Cetirizine* 10 MG TAB PO SCH (08:53)
[2018-02-27] MEDS: Ciprofloxacin 400MG IVPREMIX(* 400 MG/200 ML BAG IVPB SCH (08:54)
[2018-02-27] MEDS: Fluticasone NASAL SPRAY 50MCG* 16 gm SPRAY BTL BOTH NARES SCH (08:54)
[2018-02-27] MEDS: D5W 1/2 NS KCl 20 Meq 1000 ML* 1,000 ML IV SCH (11:08)
[2018-02-27 12:21] VITALS: BP 111/74
--- NOTE | 2018-02-27 20:23 | DS ---
CC: Dr. Salty Barksdale* DISCHARGE SUMMARY: DATE OF ADMISSION: 02/25/18 DATE OF DISCHARGE: 02/27/18 PRIMARY CARE PROVIDER: Dr. Salty Barksdale. ATTENDING PHYSICIAN: Dr. Cassandra Raza * (dictated by Sheila Murillo NP). PRIMARY DIAGNOSES: 1. Sigmoid diverticulitis. 2. Sepsis. SECONDARY DIAGNOSES: 1. Anxiety. 2. Irritable bowel syndrome. 3. Gastroesophageal reflux disease. STUDIES WHILE IN THE HOSPITAL: 1. Abdomen and pelvis CT on 02/25/[address] findings that are most consistent with proximal sigmoid diverticulitis. There is potentially a small amount of extracolonic gas, but currently no drainable fluid collection. Along the anterior lateral margin of the right middle lobe, there is a partially visualized 5 mm ground-glass nodule that was not seen on prior CT examinations. Furthermore, there is faint patchy infiltrate in the lateral aspect of the dependent portion of the right middle lobe. Differential diagnosis includes infectious or inflammatory etiologies with a neoplasm considered less likely, but not entirely excluded by imaging alone. On a nonemergent basis, CT of the chest is advised for complete characterization. Likely hepatic steatosis or other chronic infiltrative disease of the liver. Stable mild splenomegaly. 2. Chest x-ray on 02/25/18 reads as no active cardiopulmonary disease. HISTORY OF PRESENT ILLNESS AND HOSPITAL COURSE: Ms. Villanueva is a 42-year- old female with past medical history of IBS and diverticulitis, who presented to the emergency room on 02/25/18 with complaints of abdominal pain. Please see the history and physical by Marco Antonio Omalley NP, for a complete summary of the events leading up to this hospitalization. In short, the patient had approximately 6 days of intermittent abdominal discomfort that was getting progressively worse. She was concerned because of the frequency and the intensity of the pain focused in the left lower quadrant. She had some associated nausea, though no vomiting. She was concerned about her symptoms not improving and presented to the emergency room. In the emergency room, she was noted to have findings consistent with diverticulitis on CT and she did meet sepsis criteria with leukocytosis, tachycardia and a known source of infection. She received an appropriate fluid bolus in the emergency room and was started on Cipro and Flagyl. She was admitted by the hospitalist service for diverticulitis. The patient was continued on Cipro and Flagyl. General Surgery was called for consultation as the patient has a history of multiple episodes of diverticulitis. Surgery discussed possible surgical intervention with the patient and recommended a colonoscopy. Dr. Hutchison felt as though the patient may benefit from a sigmoid colectomy in the future if she so chooses to pursue this. On 02/26/18, the patient continued to have significant pain in her left lower quadrant. She was tolerating ice chips only at that point. Her vital signs normalized and her white blood count dropped from 19.1 to 10.4. As of today, the patient was feeling well and reported no pain. She tolerated a clear liquid diet this morning and a full liquid diet at lunch. The patient reports that she did have a bowel movement after lunch which was slightly loose , but she did not describe this as diarrhea. She has had no nausea or vomiting. She reports that her pain is completely resolved. She still has mild tenderness to palpation in the left lower quadrant. She is agreeable to discharge and anxious to return home. Ms. Villanueva is stable for discharge today. Vital signs are as follows: Temp 98.0, heart rate 85, respiratory rate 16, oxygen saturation 96% on room air , blood pressure 111/74. DISCHARGE MEDICATIONS: New medications: 1. Ciprofloxacin 500 mg p.o. b.i.d. x8 days. 2. Metronidazole 500 mg p.o. t.i.d. x8 days. Continued medications: 1. Bupropion 150 mg p.o. daily. 2. Cetirizine 10 mg p.o. daily. 3. Dicyclomine 10 mg p.o. t.i.d. p.r.n. abdominal pain. 4. Fluticasone nasal spray 2 sprays both nares daily. 5. Omeprazole 20 mg p.o. daily. DISCHARGE PLAN: Ms. Villanueva will be discharged home. Activity will be as tolerated. Diet will be advanced to regular as tolerated. Medications are noted above. She has been prescribed an 8-day course of Cipro and Flagyl to complete a total of 10 days of antibiotic therapy for her diverticulitis. She can continue her other usual medications. She should follow up with her primary care provider in 4 to 7 days. As noted on the CT scan, it is recommended that the patient have a CT of the chest for further evaluation of the ground-glass nodule that was noted. I will leave this up to her primary care provider. She has been instructed to return to the emergency room or nearest hospital for any worsening of symptoms, shortness of breath, lightheadedness, dizziness, chest discomfort, high fevers, chills, night sweats , loss of consciousness, or any other worrisome signs or symptoms. This is a summarized report of a complex medical history and hospital stay. For further details, please see the entire medical record. TIME SPENT: Approximately 35 minutes were spent on this discharge. SHEILA MURILLO NP [id number]/[facility] #: [id number] CAR
== END 2018-02-27 14:36 | disposition home or self-care (01) | DRG 720 ==
LOC: ED 12:18 → SSU 15:22
PROVIDERS: ADMIT Internal Medicine; ATTEND Internal Medicine
DX: A41.9 Sepsis, unspecified organism (principal); K57.32 Diverticulitis of large intestine without perforation or abscess without bleeding; F41.9 Anxiety disorder, unspecified; K21.9 Gastro-esophageal reflux disease without esophagitis; E66.01 Morbid (severe) obesity due to excess calories; F32.9 Major depressive disorder, single episode, unspecified; R91.1 Solitary pulmonary nodule; K58.9 Irritable bowel syndrome, unspecified; J30.2 Other seasonal allergic rhinitis; Z98.51 Tubal ligation status; Z90.49 Acquired absence of other specified parts of digestive tract; Z82.49 Family history of ischemic heart disease and other diseases of the circulatory system; Z83.3 Family history of diabetes mellitus; Z83.6 Family history of other diseases of the respiratory system; Z87.891 Personal history of nicotine dependence; Z72.89 Other problems related to lifestyle; Z68.39 Body mass index [BMI] 39.0-39.9, adult
CPT/HCPCS: 36415; 71045; 74177; 80048; 80053; 81003; 83605; 83690; 84702; 85025; 85027; 85610; 85730; 86140; 87040; 99284; A9270-GY; J0744; J1644; J2270; J2405; J2543; J3490